=== PATIENT | female | born 1995 | race Caucasian/White ===

== ENCOUNTER 2019-07-02 16:24 | Emergency (ER) | payer OTHER ==
[~2019-07-02] VITALS: Ht 162.6 cm; Wt 84.4 kg
[2019-07-02 16:30] VITALS: Ht 162.6 cm; Wt 84.4 kg
[2019-07-02 21:01] VITALS: BP 110/65
== END 2019-07-02 21:01 | disposition home or self-care (01) ==
LOC: ED 16:24
DX: L03.012 Cellulitis of left finger (principal)